=== PATIENT | female | born 1955 | race Caucasian/White ===

== ENCOUNTER 2020-10-14 13:53 | Outpatient (REF) | payer MEDICARE, MEDICAID, SELFPAY ==
--- NOTE | ~2020-10-14 | MM_ITS ---
EXAMINATION: MM SCREENING DIGITAL BREAST TOMOSYNTHESIS, BILATERAL CLINICAL INFORMATION: Screening. Asymptomatic. The lifetime risk of breast cancer based on the Tyrer-Cuzick Model is 17%. COMPARISON: Mammography: 12/21/2017, 11/21/2016, 07/24/2016, 10/25/2015 TECHNIQUE: Digital breast tomosynthesis is performed in both the craniocaudal and mediolateral oblique views along with computer-aided detection (CAD). Synthesized 2D images are generated from the tomosynthesis. FINDINGS: There are scattered areas of fibroglandular density (ACR BI-RADS breast composition Category b). There is a new nodular focal asymmetric density 9:00 left breast measuring approximately 6 x 5 x 4 mm, 9 cm from nipple. Margins are smooth but partially incompletely defined. Patient will be recalled for additional imaging. The remainder of the breasts show no interval mass or architectural abnormality. There are no abnormal calcifications. The axilla and skin contours are unremarkable. MM/MM tomosynthesis screening BI IMPRESSION: 1. Left: New nodular focal asymmetric density 9:00 left breast 9 cm from nipple measuring approximately 6 x 5 x 4 mm. 2. Right: No mammographic evidence of malignancy. ASSESSMENT: BI-RADS 0: Incomplete - Need Additional Imaging Evaluation RECOMMENDATION: 1. Additional views of the left breast for margins (3-D spot CC, 3-D spot LM). 2. Targeted ultrasound left breast. 3. Radiology department staff will contact the patient for additional imaging. This patient's information was entered into a reminder system with a target due date for their next mammogram.
== END 2020-10-14 13:54 | disposition home or self-care (01) ==
LOC: HO.MAMMO 13:53
PROVIDERS: Visit Provider Registered Nurse
DX: Z12.31 Encounter for screening mammogram for malignant neoplasm of breast (principal)
CPT/HCPCS: 77063; 77067

== ENCOUNTER 2020-11-02 10:35 | Outpatient (REF) | payer MEDICARE, MEDICAID, SELFPAY ==
--- NOTE | ~2020-11-02 | US_ITS ---
EXAMINATION: US DIAGNOSTIC ULTRASOUND BREAST, left breast CLINICAL INFORMATION: Density. COMPARISON: Mammography of same day as well as studies dating back to July 15, 2013. TECHNIQUE: Ultrasound of the breast is performed with real-time gonsalez scale imaging and color Doppler. FINDINGS: Targeted left breast ultrasound demonstrates at the 9:00 position 9 cm and nipple a 5 x 4 x 4 mm hypoechoic poorly marginated lesion which is taller than it is wide without internal vascularity and without distal sound shadowing. Ultrasound-guided core biopsy is recommended. Results are discussed with the patient at time of visit. Breast center navigator will call referring provider's office with the above recommendation. The biopsy has been scheduled due to reflex order. US/US breast LT limited IMPRESSION: Left breast lesion not o'clock position 9 cm from nipple for which ultrasound-guided core biopsy is recommended. ASSESSMENT: BI-RADS 4: Suspicious RECOMMENDATION: Ultrasound-guided core biopsy left breast.
--- NOTE | ~2020-11-02 | MM_ITS ---
EXAMINATION: MM DIAGNOSTIC DIGITAL BREAST TOMOSYNTHESIS, LEFT CLINICAL INFORMATION: Neodensity superior medial aspect. COMPARISON: Mammography: 10/14/2020 and studies dating back to 07/15/2013 TECHNIQUE: Digital breast tomosynthesis is performed. 2-D images are generated from the tomosynthesis. The following views are obtained: Spot compression craniocaudal and 90-degree mediolateral. FINDINGS: There are scattered areas of fibroglandular density (ACR BI-RADS breast composition Category b). Additional views demonstrate persistence of an approximately 5 x 7 mm ill-defined density about the superior medial aspect of the left breast approximately 8 cm from the nipple. Targeted left breast ultrasound demonstrates at the 9 o'clock position, 9 cm from the nipple, a 5 x 4 x 4 mm hypoechoic poorly marginated lesion which is taller than it is wide without internal vascularity and without distal sound shadowing. Ultrasound-guided core biopsy is recommended. Results are discussed with the patient at time of visit. Breast Center Navigator will call referring provider's office with the above recommendation. The biopsy has been scheduled due to reflex order. MM/MM tomosynthesis added views L IMPRESSION: Left breast lesion 9 o'clock position, 9 cm from the nipple, for which ultrasound-guided core biopsy is recommended. ASSESSMENT: BI-RADS 4: Suspicious. RECOMMENDATION: Ultrasound-guided core biopsy left breast. This patient's information was entered into a reminder system with a target due date for their next mammogram.
== END 2020-11-02 10:36 | disposition home or self-care (01) ==
LOC: HO.MAMMO 10:35
PROVIDERS: Visit Provider Registered Nurse
DX: R92.8 Other abnormal and inconclusive findings on diagnostic imaging of breast (principal)
CPT/HCPCS: 76642; 77061; 77065

== ENCOUNTER 2020-11-03 08:10 | Outpatient (REF) | payer MEDICARE, MEDICAID, SELFPAY ==
--- NOTE | ~2020-11-03 | US_ITS ---
PROCEDURE: US GUIDED BREAST BIOPSY, LEFT CLINICAL INFORMATION: Indeterminate hypoechoic left breast lesion not o'clock position 9 cm from the nipple. COMPARISON: November 02, 2020 and mammography dating back to July 15, 2013. PROCEDURAL DETAILS: The details of the procedure, as well as the risks, benefits, and alternatives to the procedure were explained to the patient in detail and all of her questions were answered, after which written informed consent was obtained. Site and side were confirmed. Prior to the procedure, sonography revealed an irregularly marginated hypoechoic mass. A time-out was performed, the lesion intended for biopsy was targeted, and the skin of the left breast was then prepped and draped in the usual sterile fashion. Using sonographic guidance, sterile technique, and 1% lidocaine without epinephrine for local anesthesia, multiple automated core biopsies were obtained through the targeted area with a 14G spring loaded Achieve core biopsy device. There was real-time confirmation of appropriate needle passage. Sampling was documented. At the completion of tissue sampling, a single coil-shaped metallic clip was deposited at the biopsy site. There was no evidence of immediate complication. SPECIMEN: An appropriate sample was obtained. DIGITAL POST-PROCEDURE MAMMOGRAPHY: Breast density: The tissue is heterogeneously dense which may obscure small masses. BI-RADS version 5, category C. There are no new mammographic findings demonstrated. The postprocedure 2-view direct digital mammogram reveals satisfactory positioning of the biopsy clip. The patient tolerated the procedure well and, after assuring adequate hemostasis, was discharged in good condition after reviewing postbiopsy breast care instructions. Final pathology results are pending. US/US breast ndl core biopsy LT IMPRESSION: 1. No immediate complication from ultrasound-guided percutaneous biopsy of breast. 2. Ultrasound was used to localize and guide marker clip placement. 3. The 2-view direct digital postprocedure mammogram reveals satisfactory positioning of the biopsy clip. 4. Final pathology results are pending. A separate report with final recommendations will be issued once these results are made available.
--- NOTE | ~2020-11-03 | MM_ITS ---
EXAMINATION: MM DIAGNOSTIC DIGITAL MAMMOGRAPHY, LEFT DIGITAL POST-PROCEDURE MAMMOGRAPHY: Breast density: The tissue is heterogeneously dense which may obscure small masses. BI-RADS version 5, category C. There are no new mammographic findings demonstrated. The postprocedure 2-view direct digital mammogram reveals satisfactory positioning of the biopsy clip. The patient tolerated the procedure well and, after assuring adequate hemostasis, was discharged in good condition after reviewing postbiopsy breast care instructions. Final pathology results are pending. MM/MM diagnostic mammo unilat LT IMPRESSION: 1. No immediate complication from ultrasound-guided percutaneous biopsy of breast. 2. Ultrasound was used to localize and guide marker clip placement. 3. The 2-view direct digital postprocedure mammogram reveals satisfactory positioning of the biopsy clip. 4. Final pathology results are pending. A separate report with final recommendations will be issued once these results are made available.
== END 2020-11-03 08:11 | disposition home or self-care (01) ==
LOC: HO.MAMMO 08:10
PROVIDERS: Visit Provider Registered Nurse
DX: R92.8 Other abnormal and inconclusive findings on diagnostic imaging of breast (principal)
CPT/HCPCS: 19083; 77065; 88305; 88341; 88342; 88360

== ENCOUNTER 2021-10-20 09:54 | Outpatient (REF) | payer MEDICARE, MEDICAID, SELFPAY ==
--- NOTE | ~2021-10-20 | MM_ITS ---
EXAMINATION: MM DIAGNOSTIC DIGITAL BREAST TOMOSYNTHESIS, BILATERAL CLINICAL INFORMATION: Due for yearly. History left invasive ductal cancer in 2020, status post lumpectomy at outside facility. First breast imaging since surgery. COMPARISON: Mammography: 11/03/2020, 11/02/2020, 10/14/2020, 12/21/2017, targeted left breast ultrasound 11/02/2020, ultrasound-guided left breast biopsy 11/03/2020. TECHNIQUE: Digital breast tomosynthesis is performed in both the craniocaudal and mediolateral oblique views along with computer-aided detection (CAD). Synthesized 2D images are generated from the tomosynthesis. Additional magnification left CC and magnification left LM views are obtained. FINDINGS: There are scattered areas of fibroglandular density (ACR BI-RADS breast composition Category b). There are post therapy changes left breast with mild reduced breast size, scarring, surgical clips, and mild smooth skin thickening. The right breast is stable from prior studies. Neither breast shows significant mass, abnormal calcifications, or other suspicious changes. Results are provided to the patient at time of visit by the technologist. MM/MM tomosynthesis diagnostic BI IMPRESSION: -No mammographic evidence of malignancy. -Post therapy changes left breast. ASSESSMENT: BI-RADS 2: Benign RECOMMENDATION: Annual bilateral mammography. This patient's information was entered into a reminder system with a target due date for their next mammogram.
== END 2021-10-20 09:55 | disposition home or self-care (01) ==
LOC: HO.MAMMO 09:54
PROVIDERS: Visit Provider Internal Medicine
DX: Z85.3 Personal history of malignant neoplasm of breast (principal); Z98.890 Other specified postprocedural states
CPT/HCPCS: 77062; 77066

== ENCOUNTER 2022-10-31 14:38 | Outpatient (REF) | payer MEDICARE, SELFPAY ==
--- NOTE | ~2022-10-31 | MM_ITS ---
EXAMINATION: MM DIAGNOSTIC DIGITAL BREAST TOMOSYNTHESIS, BILATERAL CLINICAL INFORMATION: 66 year female, year 2 month follow-up status post left breast lumpectomy and treatment for invasive ductal carcinoma diagnosed and 2020. Establishing new baseline. COMPARISON: Mammography: 09/19/2021, 11/03/2020, 11/02/2020, 10/14/2020, 12/21/2017, targeted left breast ultrasound 11/02/2020, ultrasound-guided left breast biopsy 11/03/2020. TECHNIQUE: Digital breast tomosynthesis is performed in both the craniocaudal and mediolateral oblique views along with computer-aided detection (CAD). Synthesized 2D images are generated from the tomosynthesis. In addition, 2-D left magnification LM and cc views were obtained. FINDINGS: There are scattered areas of fibroglandular density (ACR BI-RADS breast composition Category b). There are post treatment related changes in the left breast far medial aspect. There are associated surgical clips present. There is generalized skin thickening in this region. No significant change noted in the surgical site as compared with 10/20/2021. Otherwise, there are no suspicious masses, suspicious grouped calcifications, or areas of architectural distortion in either breast. The parenchymal pattern is stable from prior exams. MM/MM tomosynthesis diagnostic BI IMPRESSION: There are no significant changes from prior study. Stable post treatment related changes medial left breast. Recommend continued post therapy monitoring in one year. ASSESSMENT: BI-RADS BI-RADS 3 - Probably benign finding(s) - 12 month follow-up suggested RECOMMENDATION: 12 month diagnostic follow up Results were provided to the patient at time of visit by the technologist. This patient's information was entered into a reminder system with a target due date for their next mammogram.
== END 2022-10-31 14:39 | disposition home or self-care (01) ==
LOC: HO.MAMMO 14:38
PROVIDERS: Visit Provider Internal Medicine Medical Oncology
DX: Z85.3 Personal history of malignant neoplasm of breast (principal)
CPT/HCPCS: 77062; 77066

== ENCOUNTER → 2022-10-31 15:00 | Outpatient (BNV) | payer MEDICARE, SELFPAY | PROVIDERS: Visit Provider Radiology Diagnostic Radiology | DX: Z85.3 Personal history of malignant neoplasm of breast (principal) | CPT/HCPCS: 77062; 77066; G0279 ==

== ENCOUNTER → 2023-11-05 11:00 | Outpatient (BNV) | payer MEDICARE, SELFPAY | PROVIDERS: PCP Internal Medicine; Visit Provider Radiology Diagnostic Radiology | DX: Z85.3 Personal history of malignant neoplasm of breast (principal) | CPT/HCPCS: 77066; G0279 ==

== ENCOUNTER 2023-11-05 11:02 | Outpatient (REF) | payer MEDICARE, SELFPAY ==
--- NOTE | ~2023-11-05 | MM_ITS ---
EXAMINATION: MM DIAGNOSTIC DIGITAL BREAST TOMOSYNTHESIS, BILATERAL CLINICAL INFORMATION: Postop year 3, follow-up left breast lumpectomy and conservation treatment for IDC diagnosed left breast 11/03/2020. COMPARISON: Mammography: 10/31/2022, 09/19/2021, 11/03/2020, 11/02/2020, 10/14/2020, 12/21/2017, targeted left breast ultrasound 11/02/2020, ultrasound-guided left breast biopsy 11/03/2020. TECHNIQUE: Digital breast tomosynthesis is performed in both the craniocaudal and mediolateral oblique views along with computer-aided detection (CAD). Synthesized 2D images are generated from the tomosynthesis. In addition to standard views, 2-D spot magnification left CC x2 and left ML x1 views were obtained of the lumpectomy site. FINDINGS: There are scattered areas of fibroglandular density (ACR BI-RADS breast composition Category b). There are stable post treatment-related changes in the left breast far posteromedial aspect. There are associated surgical clips present. There is generalized skin thickening in the anterior left breast and medially, treatment-related. No significant change noted in the postlumpectomy site as compared with 10/31/2022. No suspicious or aggressive changes. Otherwise, there are no suspicious masses, suspicious grouped calcifications, or developing areas of architectural distortion in either breast. The parenchymal pattern is stable from prior exams. There is no axillary abnormality in either breast. No right breast skin abnormalities. MM/MM tomosynthesis diagnostic BI IMPRESSION: No mammographic evidence of malignancy in either breast. Stable post treatment-related changes far medial posterior left breast. This completes patient's postoperative 3 years surveillance protocol, and recommendation is for returning to routine annual bilateral screening. ASSESSMENT: BI-RADS BI-RADS 2 - Benign Findings RECOMMENDATION: 1 year F/U Results were provided to the patient at time of visit by the technologist. This patient's information was entered into a reminder system with a target due date for their next mammogram. Electronically signed by: Cyril Warner MD 11/05/2023 02:13 PM EDT
== END 2023-11-05 11:03 | disposition home or self-care (01) ==
LOC: HO.MAMMO 11:02
PROVIDERS: PCP Internal Medicine; Visit Provider Internal Medicine Medical Oncology
DX: R92.8 Other abnormal and inconclusive findings on diagnostic imaging of breast (principal)
CPT/HCPCS: 77062; 77066

== ENCOUNTER 2024-11-28 07:50 | Outpatient (REF) | payer MEDICARE, SELFPAY ==
--- NOTE | ~2024-11-28 | MM_ITS ---
EXAMINATION: MM SCREENING DIGITAL BREAST TOMOSYNTHESIS, BILATERAL CLINICAL INFORMATION: Screening. Asymptomatic. 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 COMPARISON: Mammography: Comparison is made with available priors TECHNIQUE: Digital breast mammography with tomosynthesis is performed in both the craniocaudal and mediolateral oblique views along with computer-aided detection (CAD). FINDINGS: There are scattered areas of fibroglandular density. Left post lumpectomy changes are stable. There are no significant masses, abnormal calcifications, or other abnormalities. MM/MM tomosynthesis screening BI IMPRESSION: No mammographic evidence of malignancy. ASSESSMENT: BI-RADS Category 2: Benign RECOMMENDATION: Routine annual mammography screening. 1 year F/U This examination should not preclude the clinical evaluation of a suspicious palpable abnormality. This patient's information was entered into a reminder system with a target due date for their next mammogram. Electronically signed by: Hayley Toussaint DO 12/01/2024 12:38 PM EDT
--- OUTSIDE RECORDS SUMMARY | 2024-11-28 07:52 | XMS_ITS | Encounter Summary ---
Author Organization [facility] Address [address] [place] [address] Phone Care Team Providers Care Adult Services Librarian Name Role Phone Phylicia Baer CNP Primary Care Provider Jacy Sorto MD Unavailable Park Persuad HEAD PORTER BAGGAGE Unavailable Lulú Damico MD Unavailable PackIda CNP Unavailable Lulú Damico MD Unavailable PackIda CARDIAC SPECIALIST Unavailable Travis Mistry MD Unavailable [phone] Martín Elder MD Unavailable Jose Enrique Correa MD Primary Care Provider Jose Enrique Correa MD Unavailable Encounter Details Date Type Department Care Team (Late st Contact Info) Description 11/09/2020 Ancillary Orders [facility],Outside Imaging [address] [place] [address] System, Provider Not In, [facility] [address] [address] Social History Tobacco Use Types Packs/Day Years Used Date Smoking Tobacco: Never Smokeless Tobacco: Never Alcohol Use Standard Drinks/Week Comments Yes 0 (1 standard drink = 0.6 oz pure alcohol) 1 glass of wine once a month at most Comments Unknown Sex and Gender Information Value Date Recorded Sex Assigned at Not on file Legal Sex Female 3:09 PM EDT Gender Identity Not on file Sexual Orientation Not on file documented as of this encounter Plan of Treatment Upcoming Encounters Date Type Department Care Team (Late st Contact Info) Description 12/22/2024 10:20 AM EST Office Visit [facility] at [address] [address] Travis Mistry MD [address] [place] [phone] [email or web address] 05/01/2025 9:00 AM EDT Office Visit [facility] Internal Medicine [address] [place] [address] Jose Enrique Correa MD [address] [place] [address] [email or web address] documented as of this encounter Results * Mammogram Outside (No Interpretation) (08/31/2014 12:00 AM EDT) Narrative SYSTEMGENERATED, DOCUMENTATION - 11/09/2020 11:12 AM EDT This study is for PACS storage only and not for interpretation. us Provider Not In System PhD IMG OUTSIDE IMAGING W /OUT INTERPRETATION Final Result documented in this encounter Visit Diagnoses Not on filedocumented in this encounter Additional Health Concerns Infection Onset Date Last Indicated Resolved Time CoV-Risk Comment:Per Ambulatory Triage Form 02/16/2021 02/17/202102/27 1:24 AM EST CoV-Exposed 04/26/2021 05/02/2021 05/07/2021 1:22 AM EDT CoV-Risk 07/27/2024 07/27/2024 08/07/2024 1:21 AM EDT documented as of this encounter Care Teams Adult Services Librarian Relationship Specialty Start Date End Date Phylicia Baer, RADHA [address] [place] [address] [email or web address] PCP - General Internal Medicine 10/22/19 11/06/22 Jose Enrique Correa MD [address] [place] [address] [email or web address] PCP - General Internal Medicine 11/07/22 Jacy Sorto MD [address] [place] [email or web address] Primary Oncologist Hematology and Oncology 11/15/20 12/23/20 Park Persaud [facility] [address] [place] [phone] [email or web address] Nurse Practitioner Medical Oncology 12/14/20 06/02/24 Lulú Damico MD [address] [place] [phone] [email or web address] Primary Oncologist Hematology and Oncology 12/24/20 02/27/21 Ida Arthur CNP [address] [place] [phone] [email or web address] Nurse Practitioner Oncology 01/14/21 03/08/21 Lulú Damico MD [address] [place] [phone] [email or web address] Historical LMR Provider Hematology and Oncology 03/09/21 03/09/21 Ida Arthur CNP [address] [place] [phone] [email or web address] Nurse Practitioner Medical Oncology 03/09/21 Travis Mistry MD [address] [place] [phone] [email or web address] Primary Oncologist Medical Oncology 03/30/21 Martín Elder MD [address] [place] [phone] [email or web address] Insurance Assigned Provider 05/20/22 05/19/23 Jose Enrique Correa MD [address] [place] [phone] [email or web address] Insurance Assigned Provider 05/19/23 08/18/23 documented as of this encounter Additional Source Comments The information contained in this document represents components of the legal health record. It is not the complete legal health record.[facility]
--- OUTSIDE RECORDS SUMMARY | 2024-11-28 07:52 | XMS_ITS | Encounter Summary ---
Author Organization [facility] Address [address] [place] [address] Phone Care Team Providers Care Vehicle Washer Name Role Phone Phylicia Baer CNP Primary Care Provider Jacy Sorto MD Unavailable [phone] Park Persaud CASHIER CLERK Unavailable Lulú Damico MD Unavailable PackIda RAM CAR OPERATOR Unavailable Lulú Damico MD Unavailable PackIda [facility] Unavailable Travis Mistry MD Unavailable [phone] Martín Elder MD Unavailable [phone] Jose Enrique Correa MD Primary Care Provider [phone] Jose Enrique Correa MD Unavailable Encounter Details Date Type Department Care Team (Late st Contact Info) Description 12/01/2020 Procedure Pass OR Admitting Dept - Virtual Department [address] [place], [place] [id number] Social History Tobacco Use Types Packs/Day Years Used Date Smoking Tobacco: Never Smokeless Tobacco: Never Alcohol Use Standard Drinks/Week Comments Yes 0 (1 standard drink = 0.6 oz pure alcohol) 1 glass of wine once a month at most Paying for Meds Answer Date Recorded Do you have trouble paying for medicines? No 12/03/2020 Paying Utility Bills Answer Date Record ed Do you have trouble paying your heating or elect ricity bill? Yes 12/03/2020 Transportation Answer Date Recorded Has the lack of transportati on kept you from medical appointments or from getting medications? No 12/03/2020 Comments No Sex and Gender Information Value Date Recorded Sex Assigned at Not on file Legal Sex Female 3:09 PM EDT Gender Identity Not on file Sexual Orientation Not on file documented as of this encounter Plan of Treatment Upcoming Encounters Date Type Department Care Team (Late st Contact Info) Description 12/22/2024 10:20 AM EST Office Visit [facility] at [address] [address] Travis Mistry MD [address] [place] [phone] [email or web address] 05/01/2025 9:00 AM EDT Office Visit [facility] Internal Medicine [address] [place] [address] Jose Enrique Correa MD [address] [place] [address] [email or web address] documented as of this encounter Visit Diagnoses Not on filedocumented in this encounter Additional Health Concerns Infection Onset Date Last Indicated Resolved Time CoV-Risk Comment:Per Ambulatory Triage Form 02/16/2021 02/17/202102/27 1:24 AM EST CoV-Exposed 04/26/2021 05/02/2021 05/07/2021 1:22 AM EDT CoV-Risk 07/27/2024 07/27/2024 08/07/2024 1:21 AM EDT documented as of this encounter Care Teams Vehicle Washer Relationship Specialty Start Date End Date Phylicia Baer CNP [address] [place] [address] [email or web address] PCP - General Internal Medicine 10/22/19 11/06/22 Jose Enrique Correa MD [address] [place] [phone] [email or web address] PCP - General Internal Medicine 11/07/22 Jacy Sorto MD [address] [place] [phone] [email or web address] Hematology and Oncology 11/15/20 12/23/20 Park Persaud FNP [address] [place] [phone] [email or web address] Nurse Practitioner Medical Oncology 12/14/20 06/02/24 Lulú Damico MD [address] [place] [phone] [email or web address] Primary Oncologist Hematology and Oncology 12/24/20 02/27/21 Ida Arthur, RADHA [address] [place] [phone] [email or web address] Nurse Practitioner Oncology 01/14/21 03/08/21 Lulú Damico MD [address] [place] [phone] [email or web address] Historical LMR Provider Hematology and Oncology 03/09/21 03/09/21 Ida Arthur, RADHA [address] [place] [phone] Nurse Practitioner Medical Oncology 03/09/21 Travis Mistry MD [address] [place] [phone] [email or web address] Primary Oncologist Medical Oncology 03/30/21 Martín Elder MD [address] [place] [phone] Insurance Assigned Provider 05/20/22 05/19/23 Jose Enrique Correa MD [address] [place] [phone] [email or web address] Insurance Assigned Provider 05/19/23 08/18/23 documented as of this encounter Additional Source Comments The information contained in this document represents components of the legal health record. It is not the complete legal health record.[facility]
--- OUTSIDE RECORDS SUMMARY | 2024-11-28 07:52 | XMS_ITS | Encounter Summary ---
Author Organization [facility] Address [address] [place] [address] Phone Care Team Providers Care Nursing Care Partner Name Role Phone Phylicia Baer CNP Primary Care Provider Jacy Sorto MD Unavailable Park Persaud METAL CRAFTS TEACHER Unavailable Lulú Damico MD Unavailable PackIda COMPO CONVEYOR OPERATOR Unavailable Lulú Damico MD Unavailable PackIda [facility] Unavailable Travis Mistry MD Unavailable [phone] Martín Elder MD Unavailable Jose Enrique Correa MD Primary Care Provider [phone] Jose Enrique Correa MD Unavailable Encounter Details Date Type Department Care Team (Late st Contact Info) Description 11/09/2020 Procedure Pass [facility], [address] [address] Social History Tobacco Use Types Packs/Day Years [...] on file documented as of this encounter Last Filed Vital Signs Vital Sign Reading Time Taken Comments Blood Pressure - - Pulse - - Temperature - - Respiratory Rate - - Oxygen Saturation - - Inhaled Oxygen Concentration - - Weight 77.1 kg (170 lb) 11/11/2020 12:49 PM EDT Height 167.6 cm (5' 6 ) 11/11/2020 12:49 PM EDT Body Mass Index 27.44 11/11/2020 12:49 PM EDT documented in this encounter Plan of Treatment Upcoming Encounters Date Type Department Care Team (Late st Contact Info) Description 12/22/2024 10:20 AM EST Office Visit [facility] at [address] [address] Travis Mistry MD [address] [place] [address] [email or web address] 05/01/2025 9:00 AM EDT Office Visit [facility] Medical [facility] Internal Medicine [address] [place] [address] Jose Enrique Correa MD [address] [place] [address] [email or web address] documented as of this encounter Visit Diagnoses Not on filedocumented in this encounter Additional Health Concerns Infection Onset Date Last Indicated Resolved Time CoV-Risk Comment:Per Ambulatory Triage Form 02/16/2021 02/17/202102/27 1:24 AM EST CoV-Exposed 04/26/2021 05/02/2021 05/07/2021 1:22 AM EDT CoV-Risk 07/27/2024 07/27/2024 08/07/2024 1:21 AM EDT documented as of this encounter Care Teams Nursing Care Partner Relationship Specialty Start Date End Date Phylicia Baer CNP [address] [place] [address] [email or web address] PCP - General Internal Medicine 10/22/19 11/06/22 Jose Enrique Correa MD [address] [place] [address] [email or web address] PCP - General Internal Medicine 11/07/22 Jacy Sorto MD [address] [place] [address] [email or web address] Primary Oncologist Hematology and Oncology 11/15/20 12/23/20 Park Persaud [facility] [address] [place] [address] [email or web address] Nurse Practitioner Medical Oncology 12/14/20 06/02/24 Lulú Damico MD [address] [place] [address] [email or web address] Primary Oncologist Hematology and Oncology 12/24/20 02/27/21 Ida Arthur CNP [address] [place] [address] [email or web address] Nurse Practitioner Oncology 01/14/21 03/08/21 Lulú Damico MD [address] [place] [address] [email or web address] Historical LMR Provider Hematology and Oncology 03/09/21 03/09/21 Ida Arthur CNP [address] [place] [address] Nurse Practitioner Medical Oncology 03/09/21 Travis Mistry MD [address] [place] [address] Primary Oncologist Medical Oncology 03/30/21 Martín Elder MD [address] [place] [address] Insurance Assigned Provider 05/20/22 05/19/23 Jose Enrique Correa MD [address] [place] [address] Insurance Assigned Provider 05/19/23 08/18/23 documented as of this encounter Additional Source Comments The information contained in this document represents components of the legal health record. It is not the complete legal health record.[facility]
--- OUTSIDE RECORDS SUMMARY | 2024-11-28 07:52 | XMS_ITS | Encounter Summary ---
Author Organization [facility] Address [address] [place] [address] Phone Care Team Providers Care Business Dean Name Role Phone Phylicia Baer CNP Primary Care Provider Jacy Sorto MD Unavailable [phone] Park Persaud WORKERS' COMPENSATION CLAIMS EXAMINER Unavailable uLlú Damico MD Unavailable PackIda CNP Unavailable Lulú Damico MD Unavailable PackIda [employer] Unavailable Travis Mistry MD Unavailable [phone] Martín Elder MD Unavailable Jose Enrique Correa MD Primary Care Provider [phone] Jose Enrique Correa MD Unavailable Encounter Details Date Type Department Care Team (Late st Contact Info) Description 11/09/2020 Ancillary Orders [facility],Outside Imaging [address] [place] [address] System, Provider Not In, [facility] [address] [address] Social History Tobacco Use Types Packs/Day Years [...] Description 12/22/2024 10:20 AM EST Office Visit [facility] at [address] [address] Travis Mistry MD [address] [place] [address] [email or web address] 05/01/2025 9:00 AM EDT Office Visit [facility] Internal Medicine [address] [place] [address] Jose Enrique Correa MD [address] [place] [address] [email or web address] documented as of this encounter Results * Mammogram Outside (No Interpretation) (10/14/2020 12:00 AM EDT) Narrative SYSTEMGENERATED, DOCUMENTATION - 11/09/2020 11:14 AM EDT This study is for PACS [...] documented as of this encounter Care Teams Business Dean Relationship Specialty Start Date End Date ChenPhylicia martinez CNP [address] [place] [address] [email or web address] PCP - General Internal Medicine 10/22/19 11/06/22 Jose Enrique Correa MD [address] [place] [address] [email or web address] PCP - General Internal Medicine 11/07/22 Jacy Sorto MD [address] [place] [address] [email or web address] Primary Oncologist Hematology and Oncology 11/15/20 12/23/20 Park Persaud FNP [address] [place] [address] [email or web address] Nurse Practitioner Medical Oncology 12/14/20 06/02/24 Lulú Damico MD [address] [place] [address] [email or web address] Primary Oncologist Hematology and Oncology 12/24/20 02/27/21 Ida Arthur CNP [address] [place] [address] [email or web address] Nurse Practitioner Oncology 01/14/21 03/08/21 Lulú Damico MD [address] [place] [address] [email or web address] Historical LMR Provider Hematology and Oncology 03/09/21 03/09/21 Ida Arthur CNP [address] [place] [phone] [email or web address] Nurse Practitioner Medical Oncology 03/09/21 Travis Mistry MD [address] [place] [address] [email or web address] Primary Oncologist Medical Oncology 03/30/21 Martín Elder MD [address] [place] [address] [email or web address] Insurance Assigned Provider 05/20/22 05/19/23 Jose Enrique Correa MD [address] [place] [address] [email or web address] Insurance Assigned Provider 05/19/23 08/18/23 documented as of this encounter Additional Source Comments The information contained in this document represents components of the legal health record. It is not the complete legal health record.[facility]
--- OUTSIDE RECORDS SUMMARY | 2024-11-28 07:52 | XMS_ITS | Encounter Summary ---
Author Organization [facility] Address [address] [place] [address] Phone Care Team Providers Care Computer Aide Name Role Phone Phylicia Baer CNP Primary Care Provider Jacy Sorto MD Unavailable Park Persaud MEDICAL RECEPTIONIST Unavailable Lulú Damico MD Unavailable PackIda CNP Unavailable Lulú Damico MD Unavailable PackIda FRAME TABLE OPERATOR Unavailable Travis Mistry MD Unavailable [phone] Martín Elder MD Unavailable Jose Enrique Correa MD Primary Care Provider [phone] Jose Enrique Correa MD Unavailable Encounter Details Date Type Department Care Team (Late st Contact Info) Description 11/09/2020 Ancillary Orders [facility],Outside Imaging [address] [place] [address] System, Provider Not In, [facility] [address] [address] Social History Tobacco Use Types Packs/Day Years [...] Description 12/22/2024 10:20 AM EST Office Visit [facility] at [address] [address] Travis Mistry MD [address] [place] [address] 05/01/2025 9:00 AM EDT Office Visit [facility] Internal Medicine [address] [place] [address] Jose Enrique Correa MD [address] [place] [address] documented as of this encounter Results * Mammogram Outside (No Interpretation) (11/02/2020 12:05 AM EDT) Narrative SYSTEMGENERATED, DOCUMENTATION - 11/09/2020 11:17 AM EDT This study is for PACS [...] documented as of this encounter Care Teams Computer Aide Relationship Specialty Start Date End Date ChenPhylicia martinez CNP [address] [place] [address] PCP - General Internal Medicine 10/22/19 11/06/22 Jose Enrique Correa MD [address] [place] [address] PCP - General Internal Medicine 11/07/22 Jacy Sorto MD [address] [place] [phone] [email or web address] Primary Oncologist Hematology and Oncology 11/15/20 12/23/20 Park Persaud FNP [address] [place] [address] [email or web address] Nurse Practitioner Medical Oncology 12/14/20 06/02/24 Lulú Damico MD [address] [place] [address] [email or web address] Primary Oncologist Hematology and Oncology 12/24/20 02/27/21 Ida Arthur CNP [address] [place] [address] Nurse Practitioner Oncology 01/14/21 03/08/21 Lulú Damico MD [address] [place] [address] [email or web address] Historical LMR Provider Hematology and Oncology 03/09/21 03/09/21 Ida Arthur CNP [address] [place] [address] Nurse Practitioner Medical Oncology 03/09/21 Travis Mistry MD [address] [place] [address] Primary Oncologist Medical Oncology 03/30/21 Martín Elder MD [address] [place] [phone] Insurance Assigned Provider 05/20/22 05/19/23 Jose Enrique Correa MD [address] [place] [phone] Insurance Assigned Provider 05/19/23 08/18/23 documented as of this encounter Additional Source Comments The information contained in this document represents components of the legal health record. It is not the complete legal health record.[facility]
--- OUTSIDE RECORDS SUMMARY | 2024-11-28 07:52 | XMS_ITS | Encounter Summary ---
Author Organization [facility] Address [address] [place] [address] Phone Care Team Providers Care Property Claims Adjuster Name Role Phone Phylicia Baer CNP Primary Care Provider Jacy Sorto MD Unavailable Park Persaud SALES TEAM LEADER Unavailable Lulú Damico MD Unavailable PackIda CNP Unavailable Lulú Damico MD Unavailable PackIda FOLEY ARTIST Unavailable Travis Mistry MD Unavailable [phone] Martín Elder MD Unavailable [phone] Jose Enrique Correa MD Primary Care Provider Jose Enrique Correa MD Unavailable Encounter Details Date Type Department Care Team (Late st Contact Info) Description 11/09/2020 Ancillary Orders [facility],Outside Imaging [address] [place] [address] System, Provider Not In, [facility] [address] [address] Social History Tobacco Use Types Packs/Day Years [...] Description 12/22/2024 10:20 AM EST Office Visit [facility] at [address] [address] Travis Mistry MD [address] [place] [address] [email or web address] 05/01/2025 9:00 AM EDT Office Visit [facility] Internal Medicine [address] [place] [address] Jose Enrique Correa MD [address] [place] [address] [email or web address] documented as of this encounter Results * Mammogram Outside (No Interpretation) (10/25/2015 12:00 AM EDT) Narrative SYSTEMGENERATED, DOCUMENTATION - 11/09/2020 11:15 AM EDT This study is for PACS [...] documented as of this encounter Care Teams Property Claims Adjuster Relationship Specialty Start Date End Date Phylicia Baer, RADAH [address] [place] [address] [email or web address] PCP - General Internal Medicine 10/22/19 11/06/22 Jose Enrique Correa MD [address] [place] [address] [email or web address] PCP - General Internal Medicine 11/07/22 Jacy Sorto MD [address] [place] [phone] [email or web address] Primary Oncologist Hematology and Oncology 11/15/20 12/23/20 Park Persaud [facility] [address] [place] [address] [email or web address] Nurse Practitioner Medical Oncology 12/14/20 06/02/24 Lulú Damico MD [address] [place] [address] [email or web address] Primary Oncologist Hematology and Oncology 12/24/20 02/27/21 Ida Arthur CNP [address] [place] [phone] [email or web address] Nurse Practitioner Oncology 01/14/21 03/08/21 Lulú Damico MD [address] [place] [address] [email or web address] Historical LMR Provider Hematology and Oncology 03/09/21 03/09/21 Ida Arthur CNP [address] [place] [phone] [email or web address] Nurse Practitioner Medical Oncology 03/09/21 Travis Mistry MD [address] [place] [address] [email or web address] Primary Oncologist Medical Oncology 03/30/21 Martín Elder MD [address] [place] [address] [email or web address] Insurance Assigned Provider 05/20/22 05/19/23 Jose Enrique Correa MD [address] [place] [address] [email or web address] Insurance Assigned Provider 05/19/23 08/18/23 documented as of this encounter Additional Source Comments The information contained in this document represents components of the legal health record. It is not the complete legal health record.[facility]
--- OUTSIDE RECORDS SUMMARY | 2024-11-28 07:52 | XMS_ITS | Patient Health Record ---
Author Organization [facility] Address [address] [place] [address] Care Team Providers Care Artist Scientific Name Role Phone LUISANA MCCLURE Primary Care Provider Moshe Pollard Jr Unavailable [phone] Allergies Allergen (clinical drug ingredient) Drug/Non Drug Allergy documented on EMR Reaction Allergy Type Onset Date Status erythromycin Erythromycin Unknown Drug Allergy A ctive Reason For Referral No Information Medications Medication SIG (Take, Route, Frequency, Duration) Notes Start Date End Date Status Prempro Active Multivitamin Adult A ctive Pravastatin Sodium 40 MG 1 tablet Orally Once a day Not-Taking Colyte with Flavor Packs 240 GM As directed Orally Over the specified time.; Duration: 1 day(s) Active Social History Tobacco Use: Social History Observation Description Date Details (start date - stop date) Never Smoker NA - NA Tobacco Use/Smoking Question Answer Notes Patient is a nonsmoker Alcohol Screen Question Answer Notes Did you have a drink contain ing alcohol in the past year? Yes How often did you have a dri nk containing alcohol in the past year? Monthly or less (1 point) How many drinks did you have on a typical day when you were drinking in the past year? 1 or 2 drinks (0 point) Points 1 Interpretation Negative Problems Problem Type SNOMED Code ICD Code Onset Dates Problem Status W/U Status Risk Notes Problem Irritable bowel syndrome with diarrhea (465276370) Irritable bowel syndrome with diarrhea (K58.0) Active confirmed Problem Family History of Cancer of Colon (Situation) (152433122) Family history of colon cancer (Z80.0) Active confirmed Plan Of Treatment Future Test Test Name Order Date COLONOSCOPY 02/22/2017 Insurance Providers Payer Name Payer Address Payer Phone Subscriber Number Group Number Insured Name Patient Relationship to Insured Coverage Start Date Coverage End Date [facility] [address] [facility] JOSE RAUL [phone] [id number] MARY CARTWRIGHT Self - patient is the insured Medical (General) History Medical History History ICD Code elevated cholesterol sleep apnea seasonal asthma mild disc disease Surgical History Surgery Date(Month/Year) c sections x4 tubal ligation appendectomy uterine ablasion cancer basal cell removal of growth under left great toe
--- OUTSIDE RECORDS SUMMARY | 2024-11-28 07:52 | XMS_ITS | Encounter Summary ---
Author Organization [facility] Address [address] [place] [address] Phone Care Team Providers Care Epic Interface Analyst Name Role Phone Phylicia Baer CNP Primary Care Provider Jacy Sorto MD Unavailable Park Persaud INTEGRATED CIRCUIT LAYOUT DESIGNER Unavailable Lulú Damico MD Unavailable PackIda CNP Unavailable Lulú Damico MD Unavailable PackIda TABLET MACHINE OPERATOR Unavailable Travis Mistry MD Unavailable [phone] Martín Elder MD Unavailable Jose Enrique Correa MD Primary Care Provider Jose Enrique Correa MD Unavailable Encounter Details Date Type Department Care Team (Late st Contact Info) Description 11/09/2020 Ancillary Orders [facility],Outside Imaging [address] [place] [address] System, Provider Not In, PhD [facility] [address] [address] Social History Tobacco Use Types Packs/Day Years [...] Description 12/22/2024 10:20 AM EST Office Visit [facility] at [address] [address] Travis Mistry MD [address] [place] [address] [email or web address] 05/01/2025 9:00 AM EDT Office Visit [facility] Internal Medicine [address] [place] [address] Jose Enrique Correa MD [address] [place] [address] [email or web address] documented as of this encounter Results * Mammogram Outside (No Interpretation) (12/21/2017 12:00 AM EST) Narrative SYSTEMGENERATED, DOCUMENTATION - 11/09/2020 11:22 AM EDT This study is for PACS [...] documented as of this encounter Care Teams Epic Interface Analyst Relationship Specialty Start Date End Date Phylicia Baer CNP [address] [place] [address] [email or web address] PCP - General Internal Medicine 10/22/19 11/06/22 Jose Enrique Correa MD [address] [place] [address] [email or web address] PCP - General Internal Medicine 11/07/22 Jacy Sorto MD [address] [place] [phone] [email or web address] Primary Oncologist Hematology and Oncology 11/15/20 12/23/20 Park Persaud [facility] [address] [place] [address] [email or web address] Nurse Practitioner Medical Oncology 12/14/20 06/02/24 Lulú Damico MD [address] [place] [address] [email or web address] Primary Oncologist Hematology and Oncology 12/24/20 02/27/21 Ida Arthur CNP [address] [place] [address] [email or web address] Nurse Practitioner Oncology 01/14/21 03/08/21 Lulú Damico MD [address] [place] [address] [email or web address] Historical LMR Provider Hematology and Oncology 03/09/21 03/09/21 Ida Arthur CNP [address] [place] [phone] [email or web address] Nurse Practitioner Medical Oncology 03/09/21 Travis Mistry MD [address] [place] [address] [email or web address] Primary Oncologist Medical Oncology 03/30/21 Martín Elder MD [address] [place] [address] [email or web address] Insurance Assigned Provider 05/20/22 05/19/23 Jose Enrique Correa MD [address] [place] [address] [email or web address] Insurance Assigned Provider 05/19/23 08/18/23 documented as of this encounter Additional Source Comments The information contained in this document represents components of the legal health record. It is not the complete legal health record.[facility]
--- OUTSIDE RECORDS SUMMARY | 2024-11-28 07:52 | XMS_ITS | Encounter Summary ---
Author Organization [facility] Address [address] [place] [address] Phone Care Team Providers Care Land Management Forester Name Role Phone Phylicia Baer CNP Primary Care Provider Jacy Sorto MD Unavailable Park Persaud APARTMENT COMMUNITY MANAGER Unavailable Lulú Damico MD Unavailable PackIda CNP Unavailable Lulú Damico MD Unavailable PackIda GAS SCRUBBER OPERATOR Unavailable Travis Mistry MD Unavailable [phone] Martín Elder MD Unavailable Jose Enrique Correa MD Primary Care Provider Jose Enrique Correa MD Unavailable Encounter Details Date Type Department Care Team (Late st Contact Info) Description 11/09/2020 Ancillary Orders [facility],Outside Imaging [address] [place] [address] System, Provider Not In, PhD Partners [address] [address] Social History Tobacco Use Types Packs/Day Years [...] Description 12/22/2024 10:20 AM EST Office Visit [facility] at [address] [address] Travis Mistry MD [address] [place] [phone] [email or web address] 05/01/2025 9:00 AM EDT Office Visit [facility] Internal Medicine [address] [place] [address] Jose Enrique Correa MD [address] [place] [address] [email or web address] documented as of this encounter Results * Mammogram Outside (No Interpretation) (11/03/2020 12:05 AM EDT) Narrative SYSTEMGENERATED, DOCUMENTATION - 11/09/2020 11:19 AM EDT This study is for PACS [...] documented as of this encounter Care Teams Land Management Forester Relationship Specialty Start Date End Date ChenPhylicia martinez CNP [address] [place] [address] [email or web address] PCP - General Internal Medicine 10/22/19 11/06/22 Jose Enrique Correa MD [address] [place] [address] [email or web address] PCP - General Internal Medicine 11/07/22 Jacy Sorto MD [address] [place] [phone] [email or web address] Primary Oncologist Hematology and Oncology 11/15/20 12/23/20 Park Persaud FNP [address] [place] [address] [email or web address] Nurse Practitioner Medical Oncology 12/14/20 06/02/24 Lulú Damico MD [address] [place] [address] [email or web address] Primary Oncologist Hematology and Oncology 12/24/20 02/27/21 Ida Arthur CNP [address] [place] [phone] [email or web address] Nurse Practitioner Oncology 01/14/21 03/08/21 Lulú Damico MD [address] [place] [address] [email or web address] Historical LMR Provider Hematology and Oncology 03/09/21 03/09/21 Ida Arthur CNP [address] [place] [phone] [email or web address] Nurse Practitioner Medical Oncology 03/09/21 Travis Mistry MD [address] [place] [phone] [email or web address] Primary Oncologist Medical Oncology 03/30/21 Martín Elder MD [address] [place] [address] [email or web address] Insurance Assigned Provider 05/20/22 05/19/23 Jose Enrique Correa MD [address] [place] [address] [email or web address] Insurance Assigned Provider 05/19/23 08/18/23 documented as of this encounter Additional Source Comments The information contained in this document represents components of the legal health record. It is not the complete legal health record.[facility]
--- OUTSIDE RECORDS SUMMARY | 2024-11-28 07:52 | XMS_ITS | Encounter Summary ---
Author Organization [facility] Address [address] [place] [address] Phone Care Team Providers Care Field Consultant Name Role Phone Phylicia Baer WELL PULLER Primary Care Provider Park Persaud BACKEND DEVELOPER Unavailable [phone] Ida Arthur WELL PULLER Unavailable Travis Mistry MD Unavailable [phone] Martín Elder MD Unavailable Jose Enrique Correa MD Primary Care Provider Jose Enrique Correa MD Unavailable Encounter Details Date Type Department Care Team (Late st Contact Info) Description 02/21/2022 Procedure Pass Echo [facility] [address] [place] [address] Social History Tobacco Use Types Packs/Day Years Used Date Smoking Tobacco: Never Smokeless Tobacco: Never Comments:exposed to second h and smoke Alcohol Use Standard Drinks/Week Comments Yes 0 (1 standard drink = 0.6 oz pur e alcohol) 1-2 drinks, monthly or less Child or Family Care Answer Date Record ed Do you have problems with on e of the following making it difficult for you to work, study, or receive health care? No 12/07/2021 Food Answer Date Recorded Within the past 6 months we worried whether our food would run out before we got money to buy more. I choose not to answer 12/07/2021 Within the past 6 months the food we bought just didn't last and we didn't have enough money to get more. I choose not to answer 12/07/2021 Residential Stability Answer Date Recor ded What is your housing situation today? I have [employer] 12/07/2021 How many times have you move d in the past 12 months? Zero (I did not move) 12/07/2021 Paying for Meds Answer Date Recorded Do you have trouble paying for medicines? No 12/07/2021 Paying Utility Bills Answer Date Record ed Do you have trouble paying your heating or elect ricity bill? Yes 12/07/2021 Transportation Answer Date Recorded Has the lack of transportati on kept you from medical appointments or from getting medications? No 12/07/2021 Unemployment Answer Date Recorded Are you currently unemployed or working on a part-time or temporary basis, and looking for work? Yes 12/07/2021 Comments No Sex and Gender Information Value [...] [facility] at [address] [address] Travis Mistry MD [address] [place] [phone] 05/01/2025 9:00 AM EDT Office Visit [facility] Medical [facility] Internal Medicine [address] [place] [address] Jose Enrique Correa MD [address] [place] [address] documented as of this encounter Visit Diagnoses Not on filedocumented in this encounter Additional Health Concerns Infection Onset Date Last Indicated Resolved Time CoV-Risk 07/27/2024 07/27/2024 08/07/2024 1:21 AM EDT Assessment Noted Time PHQ-2 Depression Total Score: 2 12/08/19 7:52 PM EDT documented as of this encounter Care Teams Field Consultant Relationship Specialty Start Date End Date Elliegeorge Phylicia RADHA Osorio [address] [place] [address] [email or web address] PCP - General Internal Medicine 10/22/19 11/06/22 Jose Enrique Correa MD [address] [place] [address] [email or web address] PCP - General Internal Medicine 11/07/22 Park Persaud FNP [address] [place] [address] [email or web address] Nurse Practitioner Medical Oncology 12/14/20 06/02/24 Ida Arthur CNP [address] [place] [phone] [email or web address] Nurse Practitioner Medical Oncology 03/09/21 Travis Mistry MD [address] [place] [address] [email or web address] Primary Oncologist Medical Oncology 03/30/21 Martín Elder MD [address] [place] [address] [email or web address] Insurance Assigned Provider 05/20/22 05/19/23 Jose Enrique Correa MD [address] [place] [phone] [email or web address] Insurance Assigned Provider 05/19/23 08/18/23 documented as of this encounter Additional Source Comments The information contained in this document represents components of the legal health record. It is not the complete legal health record.[facility]
--- OUTSIDE RECORDS SUMMARY | 2024-11-28 07:52 | XMS_ITS | Encounter Summary ---
Author Organization [facility] Address [address] [place] [address] Phone Care Team Providers Care Manager Commodities Name Role Phone Phylicia Baer CNP Primary Care Provider Jacy Sorto MD Unavailable Park Persaud WAITER AND CASHIER Unavailable Lulú Damico MD Unavailable PackIda CNP Unavailable Lulú Damico MD Unavailable PackIda DIRECTOR OF BUSINESS DEVELOPMENT Unavailable Travis Mistry MD Unavailable [phone] Martín Elder MD Unavailable [phone] Jose Enrique Correa MD Primary Care Provider Jose Enrique Correa MD Unavailable Encounter Details Date Type Department Care Team (Late st Contact Info) Description 11/09/2020 Ancillary Orders [facility],Outside Imaging [address] [place] [address] System, Provider Not In, PhD Partners [address] [address] Social History Tobacco Use Types Packs/Day Years [...] Description 12/22/2024 10:20 AM EST Office Visit [facility] at [address] [address] Travis Mistry MD [address] [place] [phone] [email or web address] 05/01/2025 9:00 AM EDT Office Visit [facility] Internal Medicine [address] [place] [address] Jose Enrique Correa MD [address] [place] [address] [email or web address] documented as of this encounter Results * US Breast Outside (No Interpretation) (07/24/2016 12:00 AM EDT) Narrative SYSTEMGENERATED, DOCUMENTATION - 11/09/2020 11:10 AM EDT This study is for PACS [...] documented as of this encounter Care Teams Manager Commodities Relationship Specialty Start Date End Date Phylicia Baer, RADHA [address] [place] [address] [email or web address] PCP - General Internal Medicine 10/22/19 11/06/22 Jose Enrique Correa MD [address] [place] [address] [email or web address] PCP - General Internal Medicine 11/07/22 Jacy Sorto MD [address] [place] [phone] [email or web address] Primary Oncologist Hematology and Oncology 11/15/20 12/23/20 Park Persaud [facility] [address] [place] [address] [email or web address] Nurse Practitioner Medical Oncology 12/14/20 06/02/24 Lulú Damico MD [address] [place] [address] [email or web address] Primary Oncologist Hematology and Oncology 12/24/20 02/27/21 Ida Arthur CNP [address] [place] [phone] [email or web address] Nurse Practitioner Oncology 01/14/21 03/08/21 Lulú Damico MD [address] [place] [address] [email or web address] Historical LMR Provider Hematology and Oncology 03/09/21 03/09/21 Ida Arthur CNP [address] [place] [address] [email or web address] Nurse Practitioner Medical Oncology 03/09/21 Travis Mistry MD [address] [place] [address] [email or web address] Primary Oncologist Medical Oncology 03/30/21 Martín Elder MD [address] [place] [address] [email or web address] Insurance Assigned Provider 05/20/22 05/19/23 Jose Enrique Correa MD [address] [place] [address] [email or web address] Insurance Assigned Provider 05/19/23 08/18/23 documented as of this encounter Additional Source Comments The information contained in this document represents components of the legal health record. It is not the complete legal health record.[facility]
--- OUTSIDE RECORDS SUMMARY | 2024-11-28 07:52 | XMS_ITS ---
Author Organization [facility] Address [address] [place] [address] Phone Care Team Providers Care Delivery Manager Name Role Phone Pack, Ida GARCIA Unavailable Travis Mistry MD Unavailable [phone] Jose Enrique Correa MD Primary Care Provider [phone] Active Problems Patient Care Coordination No te Formatting of this note migh t be different from the original. Height 167 cm taking by RB on 04/11/2022 Problem Noted Date Diagnosed Date Poison shelby dermatitis 07/20/2023 Routine general medical exam ination at a health care facility 04/25/2023 Assessment & Plan (04/28/2024 9:20 PM EDT): Overall patient doing really well and lipids looking good with the Pravachol. With her next oncological labs will repeat lipids. Follow-up in 1 years time. She will look into getting a better option than Prempro and we can write according to what the insurance suggests is covered at a lesser cost. Assessment & Plan (04/25/2023 10:20 AM EDT): Exam negative for any signs of CHF especially with the history of chemotherapy for breast cancer. Patient had seen cardiology regarding the chemotherapy and some shortness of breath with both cardiac and pulmonary workup being negative. We can see the patient back in 1 years time and I will keep her on the Pravachol with the thought that we could potentially go off of that with changes in diet. We are looking to keep the LDL less than 100 if possible. She is tolerating the Pravachol very well. Vasomotor symptoms due to menopause 12/22/2022 Asymmetric septal hypertrophy 04/11/2022 Bronchospasm 02/21/2022 Assessment & Plan (02/21/2022 10:21 AM EST): Discussed on the dyspnea on effort I sent a prescription for Symbicort as she gave history of bronchospasm in past and she had diffuse bronchospasm today in the exam room Dyspnea on effort 12/10/2021 Assessment & Plan (02/21/2022 10:20 AM EST): Her history is very typical of bronchospasm she had bronchospasm even before her radiation and she used albuterol. Gets short of breath on exertion particularly after walking up on the stairs and half a mile she does not use any inhaler for relief In office she had diffuse wheezing with forced expiration and I gave her the option of seeing her PCP and/or pulmonary physician and get it treated or I could just start her on a combination bronchodilator and steroid she preferred that I gave her the prescription for immediate relief. We will proceed to a stress test and echocardiogram to make sure she does not have heart failure cardiomyopathy after radiation and and wall motion abnormality Start using Symbicort rinse her mouth and in the meantime get her cardiac testing done we will get an echocardiogram for LV wall motion abnormality and myocardial perfusion imaging for coronary artery disease and ischemia Assessment & Plan (12/10/2021 8:43 PM EDT): EKG without significant changes compared to 11/2020 study (see media). Recommend PFTs, consider echocardiogram thereafter. If any worsening sx please f/u in the meantime. Seasonal affective disorder 12/10/2021 Assessment & Plan (12/10/2021 8:44 PM EDT): Discussed strategies including light box use, exercise, and engaging in regular routines/activities. If lifestyle measures are not adequately managing please follow up. Memory change 12/10/2021 Assessment & Plan (12/10/2021 8:51 PM EDT): Recommend regular physical activity. If present >1 year s/p breast cancer treatment will refer for additional workup. S/P lumpectomy, left breast 02/23/2021 Family history of malignant neoplasm of female b reast 11/18/2020 Assessment & Plan (11/18/2020 11:24 AM EDT): - Nancy's family history is significant for both her mother and her maternal aunt having developed post menopausal breast cancer in their 60s. Additionally, her mother of a malignancy 20 years following her breast cancer, which was in her liver and lungs and she is not certain of the primary. - She has met with a genetic counselor and has undergone [employer] panel testing has been sent 11/10/20. -We discussed whether she should defer surgery until results of her genetic testing have returned as she may prefer to undergo a bilateral mastectomy if she has a deleterious (cancer causing) such as BRCA1/BRCA2 which significantly increases her chance of developing a second breast cancer. However, after much discussion she is elected to proceed with the lumpectomy followed by chemotherapy to address the current malignancy and if she is found to have a clinically significant mutation she will discuss risks and benefits of prophylactic surgery and timing of this in the future when she has time to make an educated decision. She has undergone a bilateral MRI which shows no evidence of cancer in either breast aside from the known malignancy, and I assured her that it is safe to take her time in making this life changing decision. Invasive ductal carcinoma of left breast 021 Cancer Staging:Clinical stage from 11/18/2020:Stage IB(cT1b, cN0, cM0, G3, ER: Negative, OR: Negative, HER2: Negative) - Signed by Jacy Mckenzie MD on 11/18/2020 Assessment & Plan (12/17/2020 12:55 AM EDT): - I reviewed with Nancy the final pathology of her high grade triple negative breast cancer. While this was extremely early, only 7 mm in size, it also was aggressive in nature, with a moderate chance of spreading early without the addition of adjuvant chemotherapy. However, this risk can be significantly decreased with the addition of chemotherapy. - We discussed that since the estrogen receptor and progesterone receptor were both negative, her cancer's growth is not driven by the presence of estrogen and will not respond to adjuvant endocrine therapy such as an aromatase inhibitor or tamoxifen. Since her tumor is HER-2/jaycee negative, there would be no benefit to adding anti-HER-2/jaycee therapy such as trastuzumab. -I did discuss that the pathology report mentioned a brisk lymphocytic response, indicitative of her own immune system fighting the cancer. -We discussed systemic chemotherapy in detail. Because she has such a small tumor she will only require 4 cycles of adjuvant treatment. I recommend treatment with adjuvant docetaxel and cyclophosphamide on an every 3-week basis. She will receive pelfilgrastim the day following treatment to help prevent neutropenia and infection. This regimen is tough, but it does not contain an antracycline such as adriamycin, which can be cardiotoxic and has a small but real chance of leukemia or MDS in the future. Additionally, her main concern with chemotherapy is the nausea, and the regimen TC is not as emetogenic as AC. - We discussed that this regimen can be associated with various toxicities including, but not limited to fatigue, increased chance of infection, nausea, vomiting, diarrhea or constipation, rash nail changes, alopecia, allergic reactions, body aches and bone pain, peripheral neuropathy which is cumulative, and may be permanent, and rarely organ dysfunction including liver and kidney. She expressed understanding and wishes to proceed. I assured her that we will follow her closely, and if she has any concerns she should contact us immediately. -Because she has a history of severe nausea and vomiting with pregnancies, with travel, or even anxiety, I will be aggressive upfront with antiemetics to prevent chemotherapy-induced nausea and vomiting. I will start her on palonosetron and fosaprepitant as premedications, send her home with Compazine 5 mg every 8 hours initially to take [id number]. She also will start Zyprexa 2.5 to 5 mg by mouth nightly for 3 to 5 days starting the night of chemo -She has had a port placed for ease of chemotherapy administration at the time of her surgery and the site is healed nicely. -Following chemotherapy she will be a candidate for adjuvant radiation therapy to the left breast. She will meet with radiation oncology later today to discuss this in more detail. - As she is estrogen receptor negative she will not benefit from adjuvant endocrine therapy Assessment & Plan (11/18/2020 11:18 AM EDT): - I reviewed with Nancy and her partner Ed her new diagnosis of early stage, high grade triple negative breast cancer. We reviewed that while this appears to be extremely early, it also is aggressive in nature. - We discussed her pathology report. This revealed a poorly differentiated, grade 3 tumor. This means that it is fast-growing, and the cancer cells appear very different from normal breast cells. Additionally, the estrogen receptor and progesterone receptor were both negative meaning that her cancer's growth is not driven by the presence of estrogen. This is predictive if a more aggressive breast cancer, and means he will not respond to adjuvant endocrine therapy such as an aromatase inhibitor or tamoxifen. Finally, her tumor is HER-2/jaycee negative, indicating a lack of response to anti-HER-2/jaycee therapy such as trastuzumab. -Since poorly differentiated triple negative breast cancers have no specific targets to utilize and can grow and metastasize early, patient's benefit from treatment with systemic chemotherapy to prevent local and systemic recurrence of the breast cancer. They generally respond very well to systemic chemotherapy, and as her tumor is small, with no sign of having spread to the axillary lymph nodes, her risk of recurrence is extremely small, likely less than 10%. -We briefly discussed systemic chemotherapy, and given her small tumor she will only require 4 cycles of adjuvant treatment following her surgery. Pending any changes in her pathology, I recommend treatment with adjuvant docetaxel and cyclophosphamide on an every 3-week basis for a total of 4 cycles. She will receive pelfilgrastim the day following treatment to help prevent neutropenia and infection. We discussed that chemotherapy can be associated with various toxicities which we will discuss in more detail following her surgery. She has a history of severe nausea and vomiting with pregnancies, so I will be aggressive upfront with antiemetics to prevent chemotherapy-induced nausea and vomiting. - I will have a port placed for ease of chemotherapy administration at the time of her surgery. -Following chemotherapy she will be a candidate for adjuvant radiation therapy to the left breast. She will meet with radiation oncology following her surgery to discuss this in more detail. As she is estrogen receptor negative she will not benefit from adjuvant endocrine therapy Osteoarthritis of both knees Hyperlipidemia Assessment & Plan (02/21/2022 10:23 AM EST): She is getting her lipid management with her PCP if her risk of atherosclerotic or cardiovascular disease more than 7.5% in next 10 years she should be on statin Assessment & Plan (12/10/2021 8:42 PM EDT): Check fasting labs, resume statin therapy as indicated. History of recurrent miscarriages Assessment & Plan (11/18/2020 11:51 AM EDT): -Nancy has a history of 9 pregnancies, 5 spontaneous abortions of unknown etiology. The most recent was at 7 months of gestation and was a umbilical cord event. The presence of recurrent loss raises the concern for a coagulable condition, however she has never had a blood clot and has undergone numerous surgeries including a right knee orthopedic surgery. Therefore, I suspect this was a non-hematologic cause. 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 Current Treatment and Therapy Plans ACCESS AND FLUSH ([facility])* Plan Start Date:12/16/2020 Plan Provider:Park Persaud FNP Linked Problems Invasive ductal carcinoma of left breast Treatment Medications No medications scheduled. Past Treatment and Therapy Plans TREATMENT PLAN Plan Name Start Date Discontinue Date Treatment Medications Discontinue Reason Plan Provider Cycles DOCETAXE L/CYCLOP HOSPHAMI DE 1 04/06/2021 cycloPHOSphamide (CYTOXAN) infusion 250 mL (liquid vial)DOCEtaxel (TAXOTERE) IVPB in 250 mL (Doses >85 mg to 199 mg) a. Therapy Complete Lulú Damico MD 4 of 4 cycles started Resolved Problems Problem Noted Date Diagnosed Date Resolved Date Breast deformity 05/24/2022 12/13/2023 Chemotherapy induced diarrhea 01/17/2021 12/13/2023 Bone pain due to G-CSF 01/17/202112/12 Neoplastic malignant related fatigue 01/17/2021 02/28/2021
--- OUTSIDE RECORDS SUMMARY | 2024-11-28 07:52 | XMS_ITS | Encounter Summary ---
Author Organization [facility] Address [address] [place] [address] Phone Care Team Providers Care Hematologist Name Role Phone Phylicia Baer CNP Primary Care Provider Jacy Sorto MD Unavailable [phone] Park Persaud SHEET PILE HAMMER OPERATOR Unavailable [phone] Lulú Damico MD Unavailable PackIda CNP Unavailable Lulú Damico MD Unavailable Pack[employer]da SANITARY LANDFILL OPERATOR Unavailable Travis Mistry MD Unavailable [phone] Matrín Elder MD Unavailable Jose Enrique Correa MD Primary Care Provider Jose Enrique Correa MD Unavailable Encounter Details Date Type Department Care Team (Late st Contact Info) Description 11/09/2020 Ancillary Orders [facility],Outside Imaging [address] [place] [address] System, Provider Not In, [facility] [address] [address] Social History Tobacco Use Types Packs/Day Years [...] Description 12/22/2024 10:20 AM EST Office Visit [facility] at [address] [address] Travis Mistry MD [address] [place] [address] [email or web address] 05/01/2025 9:00 AM EDT Office Visit [facility] Internal Medicine [address] [place] [address] Jose Enrique Correa MD [address] [place] [address] [email or web address] documented as of this encounter Results * US Breast Outside (No Interpretation) (11/02/2020 12:00 AM EDT) Narrative SYSTEMGENERATED, DOCUMENTATION - 11/09/2020 11:16 AM EDT This study is for PACS [...] documented as of this encounter Care Teams Hematologist Relationship Specialty Start Date End Date ChenPhylicia martinez CNP [address] [place] [address] [email or web address] PCP - General Internal Medicine 10/22/19 11/06/22 Jose Enrique Correa MD [address] [place] [address] [email or web address] PCP - General Internal Medicine 11/07/22 Jacy Sorto MD [address] [place] [id number] [email or web address] Primary Oncologist Hematology and Oncology 11/15/20 12/23/20 Park Persaud FNP [address] [place] [address] [email or web address] Nurse Practitioner Medical Oncology 12/14/20 06/02/24 Lulú Damico MD [address] [place] [address] [email or web address] Primary Oncologist Hematology and Oncology 12/24/20 02/27/21 Ida Arthur CNP [address] [place] [address] [email or web address] Nurse Practitioner Oncology 01/14/21 03/08/21 Lulú Damico MD [address] [place] [address] [email or web address] Historical LMR Provider Hematology and Oncology 03/09/21 03/09/21 Ida Arthur CNP [address] [place] [address] [email or web address] Nurse Practitioner Medical Oncology 03/09/21 Travis Mistry MD [address] [place] [address] [email or web address] Primary Oncologist Medical Oncology 03/30/21 Martín Elder MD [address] [place] [address] [email or web address] Insurance Assigned Provider 05/20/22 05/19/23 Jose Enrique Correa MD [address] [place] [address] [email or web address] Insurance Assigned Provider 05/19/23 08/18/23 documented as of this encounter Additional Source Comments The information contained in this document represents components of the legal health record. It is not the complete legal health record.[facility]
--- OUTSIDE RECORDS SUMMARY | 2024-11-28 07:52 | XMS_ITS | Encounter Summary ---
Author Organization [facility] Address [address] [place] [address] Phone Care Team Providers Care [employer] Superintendent Name Role Phone Phylicia Baer CNP Primary Care Provider Jacy Sorto MD Unavailable [phone] Park Persaud ACCOUNT SUPPORT MANAGER Unavailable Lulú Damico MD Unavailable Pack[employer]da CLEAN ROOM ASSEMBLER Unavailable Lulú Damico MD Unavailable PackIda [facility] Unavailable Travis Mistry MD Unavailable [phone] Martín Elder MD Unavailable Jose Enrique Correa MD Primary Care Provider Jose Enrique Correa MD Unavailable Encounter Details Date Type Department Care Team (Late st Contact Info) Description 11/22/2020 Procedure Pass [place] Admitting Dept - Virtual Department [address] [place], [place] [id number] Social History Tobacco Use Types Packs/Day Years Used Date Smoking Tobacco: Never Smokeless Tobacco: Never Alcohol Use Standard Drinks/Week Comments Yes 0 (1 standard drink = 0.6 oz pure alcohol) 1 glass of wine once a month at most Comments No Sex and Gender Information Value Date Recorded Sex Assigned at Not on file Legal Sex Female 3:09 PM EDT Gender Identity Not on file Sexual Orientation Not on file documented as of this encounter Plan of Treatment Upcoming Encounters Date Type Department Care Team (Late st Contact Info) Description 12/22/2024 10:20 AM EST Office Visit [facility] [address] [place] [address] Travis Mistry MD [address] [place] [phone] 05/01/2025 9:00 AM EDT Office Visit [facility] Internal Medicine [address] [place], [place] [phone] Jose Enrique Correa MD [address] [place], [place] [phone] documented as of this encounter Visit Diagnoses Not on filedocumented in this encounter Additional Health Concerns Infection Onset Date Last Indicated Resolved Time CoV-Risk Comment:Per Ambulatory Triage Form 02/16/2021 02/17/202102/27 1:24 AM EST CoV-Exposed 04/26/2021 05/02/2021 05/07/2021 1:22 AM EDT CoV-Risk 07/27/2024 07/27/2024 08/07/2024 1:21 AM EDT documented as of this encounter Care Teams [employer] Superintendent Relationship Specialty Start Date End Date Phylicia Baer CNP [address] [place], [place] [phone] PCP - General Internal Medicine 10/22/19 11/06/22 Jose Enrique Correa MD [address] [place], [place] [phone] PCP - General Internal Medicine 11/07/22 Jacy Sorto MD [address] [place] [address] [email or web address] Primary Oncologist Hematology and Oncology 11/15/20 12/23/20 Park Persaud FNP [address] [place] [address] [email or web address] Nurse Practitioner Medical Oncology 12/14/20 06/02/24 Lulú Damico MD [address] [place] [address] [email or web address] Primary Oncologist Hematology and Oncology 12/24/20 02/27/21 Ida Arthur CNP [address] [place] [phone] [email or web address] Nurse Practitioner Oncology 01/14/21 03/08/21 Lulú Damico MD [address] [place] [address] [email or web address] Historical LMR Provider Hematology and Oncology 03/09/21 03/09/21 Ida Arthur CNP [address] [place] [phone] [email or web address] Nurse Practitioner Medical Oncology 03/09/21 Travis Mistry MD [address] [place] [address] [email or web address] Primary Oncologist Medical Oncology 03/30/21 Martín Elder MD [address] [place] [address] [email or web address] Insurance Assigned Provider 05/20/22 05/19/23 Jose Enrique Correa MD [address] [place] [address] [email or web address] Insurance Assigned Provider 05/19/23 08/18/23 documented as of this encounter Additional Source Comments The information contained in this document represents components of the legal health record. It is not the complete legal health record.[facility]
--- OUTSIDE RECORDS SUMMARY | 2024-11-28 07:52 | XMS_ITS | Encounter Summary ---
Author Organization [facility] Address [address] [place] [address] Phone Care Team Providers Care Mechanical Sound Technician Name Role Phone Phylicia Baer CNP Primary Care Provider Jacy Sorto MD Unavailable [phone] Park Persaud LARRY CAR OPERATOR Unavailable [phone] Lulú Damico MD Unavailable PackIda CNP Unavailable Lulú Damico MD Unavailable PackIda CASTING COORDINATOR Unavailable Travis Mistry MD Unavailable [phone] Martín Elder MD Unavailable [phone] Jose Enrique Correa MD Primary Care Provider [phone] Jose Enrique Correa MD Unavailable Encounter Details Date Type Department Care Team (Late st Contact Info) Description 11/09/2020 Ancillary Orders [facility],Outside Imaging [address] [place] [address] System, Provider Not In, [facility] [address] [address] Social History Tobacco Use Types Packs/Day Years [...] 12/22/2024 10:20 AM EST Office Visit [facility] at [address] [address] Travis Mistry MD [address] [place] [address] [email or web address] 05/01/2025 9:00 AM EDT Office Visit [facility] Internal Medicine [address] [place] [address] Jose Enrique Correa MD [address] [place] [address] [email or web address] documented as of this encounter Results * US Breast Outside (No Interpretation) (11/03/2020 12:00 AM EDT) Narrative SYSTEMGENERATED, DOCUMENTATION - 11/09/2020 11:18 AM EDT This study is for PACS [...] documented as of this encounter Care Teams Mechanical Sound Technician Relationship Specialty Start Date End Date ChenPhylicia martinez CNP [address] [place] [address] [email or web address] PCP - General Internal Medicine 10/22/19 11/06/22 Jose Enrique Correa MD [address] [place] [address] [email or web address] PCP - General Internal Medicine 11/07/22 Jacy Sorto MD [address] [place] [phone] [email or web address] Primary Oncologist Hematology and Oncology 11/15/20 12/23/20 Park Persaud FNP [address] [place] [address] [email or web address] Nurse Practitioner Medical Oncology 12/14/20 06/02/24 Lulú Damico MD [address] [place] [address] [email or web address] Primary Oncologist Hematology and Oncology 12/24/20 02/27/21 Ida Arthur CNP [address] [place] [phone] [email or web address] Nurse Practitioner Oncology 01/14/21 03/08/21 Lulú Damico MD [address] [place] [phone] [email or web address] Historical LMR Provider Hematology and Oncology 03/09/21 03/09/21 Ida Arthur CNP [address] [place] [phone] [email or web address] Nurse Practitioner Medical Oncology 03/09/21 Travis Mistry MD [address] [place] [address] [email or web address] Primary Oncologist Medical Oncology 03/30/21 Martín Elder MD [address] [place] [address] [email or web address] Insurance Assigned Provider 05/20/22 05/19/23 Jose Enrique Correa MD [address] [place] [phone] [email or web address] Insurance Assigned Provider 05/19/23 08/18/23 documented as of this encounter Additional Source Comments The information contained in this document represents components of the legal health record. It is not the complete legal health record.[facility]
--- OUTSIDE RECORDS SUMMARY | 2024-11-28 07:52 | XMS_ITS | Clinical Summary ---
Author Organization [facility] Address [address] [place] [address] Phone Care Team Providers Care Reservoir Engineering Consultant Name Role Phone Pack, Ida GARCIA Unavailable Travis Mistry MD Unavailable [phone] Jose Enrique Correa MD Primary Care Provider [phone] Allergies Active Allergy Reactions Criticality Noted Date Comments Chondroitin-Collagen Complex Flushing,GI Upset,Headaches,Hives,Itc patricia,Rash Low 07/16/2023 Erythromycin Rash Low 12/03/2019 Ujqisvmbyvy-Cnyxyf-Kqvc-Belle ag Rash Low 12/05/2023 Glucosamine-Chondroitin Anxiety,Bronchos pasm,Diar francisco,Flushing,GI Upset,Headaches,Hives,Ins omnia,Itching,Musculoskel etal Pain,Photosensitivity,Eder h,Shortness Of Breath,Swelling,Throat Tightness High 04/16/2024 Medications albuterol 90 mcg/actuation inhalerIndication s:Bronchospasm Inhale 2 puffs into the lungs every 6 (six) hours as needed for wheezing. 8 g 3 4 Active estrogen, conjugated,-medro xyPROGESTERone (PREMPRO) 0.3-1.5 mg per tabletIndications :Vasomotor symptoms due to menopause Take 1 tablet by mouth daily. 90 tablet 5 Active doxycycline monohydrate (MONODOX) 100 MG capsule Take 1 capsule (100 mg total) by mouth 2 (two) times a day. 14 capsule 5 Active betamethasone dipropionate 0.05 % ointment Apply topically 2 (two) times a day. 45 g 5 Active methylPREDNISolon e (MEDROL DOSEPACK) 4 mg tablet follow package directions 21 tablet 5 Active pravastatin (PRAVACHOL) 20 MG tablet Take 1 tablet (20 mg total) by mouth every morning. 90 tablet 3 5 Active Active Problems Patient Care Coordination No te [...] 11/18/2020:Stage IB(cT1b, cN0, cM0, G3, ER: Negative, MN: Negative, HER2: Negative) - Signed by Jacy [...] mg every 8 hours initially to take cngynm-lqw-dqupp. She also will start Zyprexa 2.5 to [...] cause. 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 Resolved Problems Problem Noted Date Diagnosed Date Resolved Date Breast deformity 05/24/2022 12/13/2023 Chemotherapy induced diarrhea 01/17/2021 12/13/2023 Bone pain due to G-CSF 01/17/202112/12 Neoplastic malignant related fatigue 01/17/2021 02/28/2021 Immunizations Immunization Administration Dates Next Due COVID-19 (Pre-12/04) Moderna Vaccine, mRNA, PF 07/07/2020,06/07/2020 INFLUENZA, SPLIT VIRUS, TRIVALENT PF 09/25/2016 INFLUENZA, SPLIT VIRUS, TRIV ALENT W/ PRESERVATIVE IM 09/25/2016 Influenza High-Dose Quadriva lent Preservative Free IM 10/13/2020 Influenza Quadrivalent Adjuv anted Preservative Free IM 12/07/2022,12/31/2021 Influenza Quadrivalent Prese rvative Free IM 11/13/2019,10/04/2017,09/27/2015,2014 Influenza, Unspecified Formulation 10/13/2020 Influenza, whole 11/09/2014 Pneumococcal conjugate PCV13 04/07/2015 Tdap 11/03/2014 Zoster live 07/04/2015 Zoster recombinant 12/27/2017,09/18/2017 Family History Medical History Relation Comments Breast cancer Maternal Aunt Breast cancer Mother Relation Status Comments Maternal Aunt Mother Social History Tobacco Use Types Packs/Day Years Used Date Smoking Tobacco: Never Smokeless Tobacco: Never Tobacco Cessation:Counseling Given: Not Answered Comments:exposed to second hand smoke Alcohol Use Standard Drinks/Week Comments Yes 0 (1 standard drink = 0.6 oz pur e alcohol) 5 glasses of wine a year Child or Family Care Answer Date Record ed Do you have problems with on e of the following making it difficult for you to work, study, or receive health care? No 04/27/2024 Education Answer Date Recorded Are you interested in more education? Not on zaria e 06/08/2022 Are you concerned about learning? Not on file 06/08/2022 No 06/08/2022 No 06/08/2022 Food Answer Date Recorded Within the past 6 months we worried whether our food would run out before we got money to buy more. Never True 07/27/2024 Within the past 6 months the food we bought just didn't last and we didn't have enough money to get more. Never True Residential Stability Answer Date Recor ded What is your housing situation today? I have gilbert sing 07/27/2024 How many times have you move d in the past 12 months? Zero (I did not move) 07/27/2024 Paying for Meds Answer Date Recorded Do you have trouble paying for medicines? Yes 07/27/2024 Paying Utility Bills Answer Date Record ed Do you have trouble paying your heating or elect ricity bill? No 07/27/2024 Transportation Answer Date Recorded Has the lack of transportati on kept you from medical appointments or from getting medications? No 07/27/2024 Unemployment Answer Date Recorded Are you currently unemployed or working on a part-time or temporary basis, and looking for work? Yes 12/07/2021 Digital Access Answer Date Recorded No 07/27/2024 Yes 07/27/2024 Do you have reliable internet access at home? Ye s 07/27/2024 Do you have a device (e.g., phone, tablet, computer) with a working camera? Yes 07/27/2024 Intimate Partner Violence Answer Date R ecorded Are you denied basic needs s uch as food, clothing, or medical care? No 07/27/2024 In the past 12 months have y ou been in a relationship with a person who hurts, threatens, or tries to control you? No 07/27/2024 Are you denied basic needs s uch as food, clothing, or medical care? No 07/27/2024 In the past 12 months have y ou been in a relationship with a person who hurts, threatens, or tries to control you? No 07/27/2024 Comments No Sex and Gender Information Value Date Recorded Sex Assigned at Not on file Legal Sex Female 3:09 PM EDT Gender Identity Not on file Sexual Orientation Not on file Last Filed Vital Signs Vital Sign Reading Time Taken Comments Blood Pressure 151/89 07/27/2024 3:09 PM EDT Pulse 68 07/27/2024 3:09 PM EDT Temperature 36.6 C (97.9 F) 07/27/2024 3:09 PM EDT Respiratory Rate 18 07/27/2024 3:09 PM EDT Oxygen Saturation 98% 07/27/2024 3:09 PM EDT Inhaled Oxygen Concentration - - Weight 87.1 kg (192 lb) 07/27/2024 10:47 AM EDT Height 165.1 cm (5' 5 ) 07/27/2024 10:47 AM EDT Body Mass Index 31.95 07/27/2024 10:47 AM EDT Plan of Treatment Upcoming Encounters Date Type Department Care Team (Late st Contact Info) Description 12/22/2024 10:20 AM EST Office Visit [facility] at [address] [address] Travis Mistry MD [address] [place] [address] 05/01/2025 9:00 AM EDT Office Visit [facility] Internal Medicine [address] [place] [address] Jose Enrique Correa MD [address] [place] [address] [email or web address] Health Maintenance Due Date Last Done Comments COLOGUARD 12/10/1999 FIT TEST 12/10/1999 FOBT 12/10/1999 SIGMOIDOSCOPY 12/10/1999 VIRTUAL COLONOSCOPY 12/10/1999 PNEUMOCOCCAL VACCINES (50+ years) (2 of 2 - PPSV23) 06/02/2015 04/07/2015 COLONOSCOPY 04/27/2022 04/27/2017 COLORECTAL CANCER SCREENING 04/27/2022 INFLUENZA VACCINE (#1) 2024 , 12/07/2022, 12/07/2022, Additional history exists COVID-19 VACCINE (3 - 2024- season) 2024 07/07/2020, 06/07/2020 Adult Td,Tdap Booster 11/03/2024 11/03/2014 DEPRESSION SCREENING 04/28/2025 04/28/2024 MAMMOGRAM 11/04/2025 11/05/2023, 08/13, 10/31/2022, Additional history exists SCREENING FOR DIABETES 07/28/2027 07/27/2024, 2019 LIPID PANEL 06/16/2029 06/16/2024, 08/13, 02/02/2023, Additional history exists RSV VACCINE (1 - 1-dose 75+ series) 2029 ZOSTER VACCINES Completed 12/27/2017, 08/2017, 07/04/2015 OSTEOPOROSIS SCREENING INITIAL (ONE-TIME) Completed 10/02/2022 HEPATITIS C SCREENING Completed 09/10/2023 SMOKING STATUS SCREENING (Once After 26 Yrs) Completed 07/23/2024 HEPATITIS A VACCINES Aged Out No long er eligible based on patient's age to complete this topic HIB VACCINES Aged Out No longer eligi ble based on patient's age to complete this topic MENINGOCOCCAL VACCINES (ACWY) Aged Out No longer eligible based on patient's age to complete this topic MENINGOCOCCAL VACCINES (B) Aged Out N o longer eligible based on patient's age to complete this topic Medical Devices Implanted Type Area School Business Administrator Device Identifier Shelf Expiration Date Model / Serial / Lot Prosthetic Joint Prosthetic Joint Right: Knee Wire Wire Left: Breast Dental Implant Port Dignity 8fr Infusion Mid Size Pre-Attached Open Suture Hole - [id number] Implanted:Qty: 1 on 11/22/2020 by Solange Killian MD at [facility] Right: Chest MED COMP 04/11/2025 [id number] / / [id number] Procedures Procedure Name Priority Date/Time Associated Diagnosis Comments LIPID PANEL Routine 06/16/2024 2:15 PM EDT Hyperlipidemia, unspecified hyperlipidemia type BI MAMMOGRAM OUTSIDE (NO INTERPRETATION) Routine 11/05/2023 12:00 AM EDT HEPATITIS C ANTIBODY, QUALITATIVE Routine 09/10/2023 7:58 AM EDT Need for hepatitis C screening test BD DXA AXIAL (SPINE) WITH HIP Routine 10/02/2022 1:14 PM EDT Routine general medical examination at a health care facility OUTSIDE GLUCOSE FASTING Routine 12/31/2019 HM COLONOSCOPY FOR RESULT ENTRY ONLY Routine 04/27/2017 from Last 3 Months or Most Recently Relevant to Health Maintenance Results * (ABNORMAL) Lipid panel (06/16/2024 2:15 PM EDT) HDL 87 mg/dL [facility] Comment: Interpretation <40 mg/dL: Low HDL cholesterol (major risk factor for CHD) Greater than or equal to 60 mg/dL: High HDL cholesterol ( negative risk factor for CHD) HDL - cholesterol is affected by a number of factors, e.g. smoking, excerise, hormones, sex and age. CHOLESTEROL 269(H) 0 - 240 mg/dL [facility] TRIGLYCERIDES 120 30 - 160 mg/dL [facility] LDL 158(H) 50 - 129 mg/dL [facility] Comment: LDL levels in terms of risk for coronary heart disease: <100 mg/dL: Optimal 100-129 mg/dL: Near or above optimal 130-159 mg/dL: Borderline high 160-189 mg/dL: High >190 mg/dL: Very High CARDIAC RISK RATIO 3.1(L) 3.3 - 4.4 C [facility] Blood 06/16/2024 2:15 PM EDT 06/16/2024 2:20 PM EDT us Jose Enrique Correa MD LAB BLOOD ORDERABLES Final Resul t [facility] [address] [place] [address] * Mammogram Outside (No Interpretation) (11/05/2023 12:00 AM EDT) Narrative Aminata Burns - 11/08/2023 2:38 PM EDT This study is for PACS storage only and not for interpretation. Procedure Note Aminata Burns - 11/08/2023 This study is for PACS storage only and not for interpretation. us Unknown Unknown IMG OUTSIDE IMAGING W/OUT INT ERPRETATION Final Result * Hepatitis C antibody, qualitative (09/10/2023 7:58 AM EDT) HCV NON-REACTIV E NON-REACTI VE [facility] Blood 09/10/2023 7:58 AM EDT 09/10/2023 8:13 AM EDT us Jose Enrique Correa MD LAB BLOOD ORDERABLES Final Resul t Performing Organization Address City/State/[facility] Co de Phone Number [address] [address] * BD DXA AXIAL (SPINE) WITH HIP (10/02/2022 1:14 PM EDT) Anatomical Region Laterality Modality Bone Density Bone Density 10/10/2022 9:49 AM EDT Impressions 10/10/2022 9:55 AM EDT Bone mineral density within the left femoral neck falls within the osteopenia range. Narrative 10/10/2022 9:55 AM EDT This is a 66-year-old female presenting for a screening exam. No prior studies for comparison. Evaluation of the lumbar spine and both hips is obtained and appears technically adequate. The lumbar spine from L1 through L4 discloses a total bone mineral density of 1.062 g/cm2 with a T-score of 0.1. This is in the normal range. The right hip (total) has a total bone mineral density of 0.838 g/cm2 with a T-score of -0.8. This is in the normal range. The right hip (neck) has a total bone mineral density of 0.735 g/cm2 with a T- score of -1.0. The left hip (total) has a total bone mineral density of 0.860 g/cm2 for a T- score of -0.7. This is in the normal range. The left hip (neck) has a total bone mineral density of 0.675 g/cm2 with a T- score of -1.6. Z score 0.1. Procedure Note Kei Bernabe MD - 10/10/2022 This is a 66-year-old female presenting for a screening exam. No prior studies for comparison. Evaluation of the lumbar spine and both hips is obtained and appearstechnically adequate. The lumbar spine from L1 through L4 discloses a total bone mineral densityof 1.062 g/cm2 with a T-score of 0.1. This is in the normal range. The right hip (total) has a total bone mineral density of 0.838 g/gb5tvke a T- score of -0.8. This is in the normal range. The right hip (neck) has a total bone mineral density of 0.735 g/cm2 witha T- score of -1.0. The left hip (total) has a total bone mineral density of 0.860 g/cm2 for aT- score of -0.7. This is in the normal range. The left hip (neck) has a total bone mineral density of 0.675 g/cm2 with aT- score of -1.6. Z score 0.1. IMPRESSION: Bone mineral density within the left femoral neck falls within theosteopenia range. Phylicia Baer [facility] BD BONE DENSITY DE XA Final Result * Outside Glucose,Fasting (12/31/2019) Glucose, fasting - External 94 65 - 99 mg/dL Historical Provider LAB BLOOD ORDERABLES Kiki l Result * COLONOSCOPY FOR RESULT ENTRY ONLY (04/27/2017) Historical Provider HEALTH MAINTENANCE Edited Result - Final from Last 3 Months or Most Recently Relevant to Health Maintenance Insurance MEDICARE PART A & B MEDICARE POS PPO REPLACEMENT MEDICARE PART A & B MEDICARE POS PPO REPLACEMENT MEDICARE PART A & B MEDICARE PART A & B MEDICARE PART A & B [place] MEDIC[place] POS PPO REPLACEMENT MEDICARE PART A & B MEDICARE PART A & B Member Subscriber Plan / Payer (Ef fective 2019-Present) Name:RebrittneyNancy chan Member ID:[id number] Relation to Subscriber:Self Name:Nancy Christiansen Subscriber ID:[id number] Payer ID:[id number] Group ID:Not on file Type:Medicare Address: [employer] [address] MEDICARE POS PPO REPLACEMENT MEDICARE PART A & B Member Subscriber Plan / Payer (Ef fective 2019-Present) Name:RebrittneyRoshan chanNancy Member ID:[id number] Relation to Subscriber:Self Name:Nancy Christiansen Subscriber ID:[id number] Payer ID:[id number] Group ID:Not on file Type:Medicare Address: [place] [phone] [place] MEDICARE POS PPO REPLACEMENT MEDICARE PART A & B Member Subscriber Plan / Payer (Ef fective 2019-Present) Name:Nancy Christiansen Member ID:[id number] Relation to Subscriber:Self Name:Nancy Christiansen Subscriber ID:[id number] Payer ID:[id number] Group ID:Not on file Type:Medicare Address: [facility] [employer] [facility] [employer] [facility] [address] [facility][1] [place] [address] [place] MEDICARE POS PPO REPLACEMENT Advance Directives For more information, please contact: [phone] (9AM - 5PM [facility], Sunday-Sunday) Documents on File Type Date Recorded Patient Senior Accounting Manager Expl anation Healthcare Proxy 12/27/2020 HEALTHCARE PROXY 12/26/2020 * Full Code (Latest Code Status on File) Date Activated Date Inactivated Comments 12/01/2020 2:10 PM Question Answer Comments Code Status Confirmed With: Patient * Full Code Date Activated Date Inactivated Comments 11/22/2020 7:08 AM 12/01/2020 2:10 PM Question Answer Comments Code Status Confirmed With: Patient Care Teams Reservoir Engineering Consultant Relationship Specialty Start Date End Date Jose Enrique Correa MD [address] [place] [address] [email or web address] PCP - General Internal Medicine 11/07/22 Ida Arthur CNP [address] [place] [phone] Nurse Practitioner Medical Oncology 03/09/21 Travis Mistry MD [address] [place] [address] Primary Oncologist Medical Oncology 03/30/21 Additional Source Comments The information contained in this document represents components of the legal health record. It is not the complete legal health record.[facility]
--- OUTSIDE RECORDS SUMMARY | 2024-11-28 07:52 | XMS_ITS | Encounter Summary ---
Author Organization [facility] Address [address] [place] [address] Phone Care Team Providers Care Head Of Science Name Role Phone Phylicia Baer CNP Primary Care Provider Jacy Sorto MD Unavailable [phone] Park Persaud MIXOLOGIST Unavailable [phone] Lulú Damico MD Unavailable PackIda CNP Unavailable Lulú Damico MD Unavailable PackIda HAND SPRAYER Unavailable Travis Mistry MD Unavailable [phone] Martín Elder MD Unavailable Jose Enrique Correa MD Primary Care Provider [phone] Jose Enrique Correa MD Unavailable Encounter Details Date Type Department Care Team (Late st Contact Info) Description 11/09/2020 Ancillary Orders [facility],Outside Imaging [address] [place] [address] System, Provider Not In, [facility] [address] [address] Social History Tobacco Use Types Packs/Day Years [...] Description 12/22/2024 10:20 AM EST Office Visit [facility] at [address] [address] Travis Mistry MD [address] [place] [phone] [email or web address] 05/01/2025 9:00 AM EDT Office Visit [facility] Internal Medicine [address] [place] [address] Jose Enrique Correa MD [address] [place] [address] [email or web address] documented as of this encounter Results * Mammogram Outside (No Interpretation) (11/21/2016 12:00 AM EDT) Narrative SYSTEMGENERATED, DOCUMENTATION - 11/09/2020 11:21 AM EDT This study is for PACS [...] documented as of this encounter Care Teams Head Of Science Relationship Specialty Start Date End Date Phylicia Baer, RADHA [address] [place] [address] [email or web address] PCP - General Internal Medicine 10/22/19 11/06/22 Jose Enrique Correa MD [address] [place] [address] [email or web address] PCP - General Internal Medicine 11/07/22 Jacy Sorto MD [address] [place] [address] [email or web address] Primary Oncologist Hematology and Oncology 11/15/20 12/23/20 Park Persaud [facility] [address] [place] [address] [email or web address] Nurse Practitioner Medical Oncology 12/14/20 06/02/24 Lulú Damico MD [address] [place] [address] [email or web address] Primary Oncologist Hematology and Oncology 12/24/20 02/27/21 Ida Arthur CNP [address] [place] [phone] [email or web address] Nurse Practitioner Oncology 01/14/21 03/08/21 Lulú Damico MD [address] [place] [address] [email or web address] Historical LMR Provider Hematology and Oncology 03/09/21 03/09/21 Ida Arthur CNP [address] [place] [address] [email or web address] Nurse Practitioner Medical Oncology 03/09/21 Travis Mistry MD [address] [place] [address] [email or web address] Primary Oncologist Medical Oncology 03/30/21 Martín Elder MD [address] [place] [address] [email or web address] Insurance Assigned Provider 05/20/22 05/19/23 Jose Enrique Correa MD [address] [place] [address] [email or web address] Insurance Assigned Provider 05/19/23 08/18/23 documented as of this encounter Additional Source Comments The information contained in this document represents components of the legal health record. It is not the complete legal health record.[facility]
--- OUTSIDE RECORDS SUMMARY | 2024-11-28 07:52 | XMS_ITS | Encounter Summary ---
Author Organization Located [facility] Address [address] [place] [address] Phone Care Team Providers Care Tire Center Manager Name Role Phone Phylicia Baer CNP Primary Care Provider Jacy Sorto MD Unavailable Park Persaud GRAIN DRIER Unavailable Lulú Damico MD Unavailable PackIda CNP Unavailable Lulú Damico MD Unavailable PackIda QUALITY ASSURANCE MONITOR BODY Unavailable Travis Mistry MD Unavailable [phone] Martín Elder MD Unavailable [phone] Jose Enrique Correa MD Primary Care Provider [phone] Jose Enrique Correa MD Unavailable Encounter Details Date Type Department Care Team (Late st Contact Info) Description 11/09/2020 Ancillary Orders [facility],Outside Imaging [address] [place] [address] System, Provider Not In, [facility] [address] [address] Social History Tobacco Use Types Packs/Day Years [...] Description 12/22/2024 10:20 AM EST Office Visit [facility] at [address] [address] Travis Mistry MD [address] [place] [phone] [email or web address] 05/01/2025 9:00 AM EDT Office Visit [facility] Internal Medicine [address] [place] [address] Jose Enrique Correa MD [address] [place] [address] [email or web address] documented as of this encounter Results * Mammogram Outside (No Interpretation) (07/24/2016 12:05 AM EDT) Narrative SYSTEMGENERATED, DOCUMENTATION - 11/09/2020 11:11 AM EDT This study is for PACS [...] documented as of this encounter Care Teams Tire Center Manager Relationship Specialty Start Date End Date Phylicia Baer, RADHA [address] [place] [address] [email or web address] PCP - General Internal Medicine 10/22/19 11/06/22 Jose Enrique Correa MD [address] [place] [address] [email or web address] PCP - General Internal Medicine 11/07/22 Jacy Sorto MD [address] [place] [phone] [email or web address] Primary Oncologist Hematology and Oncology 11/15/20 12/23/20 Park Persaud [facility] [address] [place] [address] [email or web address] Nurse Practitioner Medical Oncology 12/14/20 06/02/24 Lulú Damico MD [address] [place] [address] [email or web address] Primary Oncologist Hematology and Oncology 12/24/20 02/27/21 Ida Arthur CNP [address] [place] [phone] [email or web address] Nurse Practitioner Oncology 01/14/21 03/08/21 Lulú Damico MD [address] [place] [address] [email or web address] Historical LMR Provider Hematology and Oncology 03/09/21 03/09/21 Ida Arthur CNP [address] [place] [phone] [email or web address] Nurse Practitioner Medical Oncology 03/09/21 Travis Mistry MD [address] [place] [address] [email or web address] Primary Oncologist Medical Oncology 03/30/21 Martín Elder MD [address] [place] [address] [email or web address] Insurance Assigned Provider 05/20/22 05/19/23 Jose Enrique Correa MD [address] [place] [address] [email or web address] Insurance Assigned Provider 05/19/23 08/18/23 documented as of this encounter Additional Source Comments The information contained in this document represents components of the legal health record. It is not the complete legal health record.[facility]
== END 2024-11-28 07:51 | disposition home or self-care (01) ==
LOC: HO.MAMMO 07:50
PROVIDERS: PCP Internal Medicine; Visit Provider Internal Medicine
DX: Z12.31 Encounter for screening mammogram for malignant neoplasm of breast (principal)
CPT/HCPCS: 77063; 77067

== ENCOUNTER → 2024-11-28 08:00 | Outpatient (BNV) | payer MEDICARE, SELFPAY | PROVIDERS: PCP Internal Medicine; Visit Provider Internal Medicine | DX: Z12.31 Encounter for screening mammogram for malignant neoplasm of breast (principal) | CPT/HCPCS: 77063; 77067 ==